=== PATIENT | male | born 1965 | race Caucasian/White ===

== ENCOUNTER 2024-02-11 13:39 | Inpatient (IN) | payer OTHER ==
--- NOTE | 2024-02-11 13:52 | ED ---
Chest Pain HPI - General Source: patient, RN notes reviewed Mode of arrival: ambulatory Limitations: no limitations - History of Present Illness MD Complaint: chest pain <Carlotta Plunkett - Last Filed: 02/11/24 13:46> <Jayla Scott - Last Filed: 02/11/24 17:11> - General Chief Complaint: Chest Pain Stated Complaint: Chest Pain Time Seen by Provider: 02/11/24 13:46 - History of Present Illness Initial Comments: Quick Note: This is a 58 year old male who presents to the emergency department for chest pain. States that it has been present over the last few weeks but seems to be getting worse. Pain is much worse with exertion. Reports associated shortness of breath. States that walking any distance is very difficult. Denies any history of cardiac issues. (Carlotta Plunkett) 58-year-old male presenting to the ER with chest pain. States he has been having this chest pain for the past several weeks but it has been worsening. He describes the pain as pressure in his chest that radiates into his right shoulder and neck. He also endorses nausea when he is having the chest pain. He states the pain is worse with exertion and is accompanied by some shortness of breath as well. He reports an episode 3 days ago where he was walking back to his [facility] after fishing and reports the chest pain was more severe than it ever had been which alarmed him. He denies any current pain while lying on the stretcher. States he has no known health conditions however states he has not been to the doctor in a long time. He is a previous tobacco smoker. (Jayla Scott) - Related Data Home Medications Medication Instructions Recorded Confirmed No Known Home Medications 02/11/24 02/11/24 Allergies Allergy/AdvReac Type Severity Reaction Status Date / Time No Known Allergies Allergy Verified 02/11/24 16:17 Review of Systems ROS Other: All systems not noted in ROS Statement are negative. <Carlotta Plunkett - Last Filed: 02/11/24 13:46> ROS Other: All systems not noted in ROS Statement are negative. <Jayla Scott - Last Filed: 02/11/24 17:11> ROS Statement: Those systems with pertinent positive or pertinent negative responses have been documented in the HPI. EKG Findings - EKG Results: EKG: interpreted by ERMD (EKG reveals normal sinus rhythm with occasional PACs. No acute ST changes present. Ventricular rate 89 bpm, KS interval 178, QRS duration 90, QT/QTc 338/385.) <Jayla Scott - Last Filed: 02/11/24 17:11> General Exam <Carlotta Plunkett - Last Filed: 02/11/24 13:46> General appearance: alert, in no apparent distress Head exam: Present: atraumatic, normocephalic, normal inspection Eye exam: Present: normal appearance, PERRL, EOMI. Absent: scleral icterus, conjunctival injection, periorbital swelling ENT exam: Present: normal exam, mucous membranes moist Neck exam: Present: normal inspection. Absent: tenderness, meningismus, lymphadenopathy Respiratory exam: Present: normal lung sounds bilaterally. Absent: respiratory distress, wheezes, rales, rhonchi, stridor Cardiovascular Exam: Present: regular rate, normal rhythm, normal heart sounds. Absent: systolic murmur, diastolic murmur, rubs, gallop, clicks GI/Abdominal exam: Present: soft, normal bowel sounds. Absent: distended, tenderness, guarding, rebound, rigid Neurological exam: Present: alert, oriented X3, CN II-XII intact Psychiatric exam: Present: normal affect, normal mood Skin exam: Present: warm, dry, intact, normal color. Absent: rash <Jayla Scott - Last Filed: 02/11/24 17:11> - General Exam Comments Initial Comments: Visual Physical Exam Vital signs reviewed General: Well-appearing, nontoxic, no acute distress. Head: Normocephalic, atraumatic Eyes: PERRLA, EOMI ENT: Airway patent Chest: Nonlabored breathing Skin: No visual rash, normal skin tone Neuro: Alert and oriented 3 Musculoskeletal: No gross abnormalities (Carlotta Plunkett) Course Vital Signs 02/11/24 02/11/24 13:50 15:20 Temperature 98.0 F Pulse Rate 98 82 Respiratory 20 18 Rate Blood Pressure 144/102 162/96 O2 Sat by Pulse 97 100 Oximetry Chest Pain [facility] <Carlotta Plunkett - Last Filed: 02/11/24 13:46> <Jayla Scott - Last Filed: 02/11/24 17:11> - MDM I performed the QuickNote portion of this chart. Signed Carlotta Plunkett PA-C. (Carlotta Plunkett) Was pt. sent in by a medical professional or institution (SHAUNA Combs, BOAT JOINER HELPER, urgent care, hospital, or alf...) When possible be specific @ -No Did you speak to anyone other than the patient for history (EMS, parent, family, police, friend...)? What history was obtained from this source @ -No Did you review nursing and triage notes (agree or disagree)? Why? @ -I reviewed and agree with nursing and triage notes Were old charts reviewed (outside hosp., previous admission, EMS record, old EKG, old radiological studies, urgent care reports/EKG's, alf records)? Report findings @ -No old charts were reviewed Differential Diagnosis (chest pain, altered mental status, abdominal pain women, abdominal pain men, vaginal bleeding, weakness, fever, dyspnea, syncope, headache, dizziness, GI bleed, back pain, seizure, CVA, palpatations, mental health, musculoskeletal)? @ -Differential Chest Pain: Stable Angina, Unstable Angina, STEMI, NSTEMI Aortic Dissection, Pneumothorax, Musculoskeletal, Esophageal Spasm GERD, Cholecystitis, Pancreatitis, Zoster, this is not meant to be an all-inclusive list. EKG interpreted by me (3pts min.). @ -As above X-rays interpreted by me (1pt min.). @ -Chest x-ray negative for acute process CT interpreted by me (1pt min.). @ -None done U/S interpreted by me (1pt. min.). @ -None done What testing was considered but not performed or refused? (CT, X-rays, U/S, labs)? Why? @ -None What meds were considered but not given or refused? Why? @ -None Did you discuss the management of the patient with other professionals (professionals i.e. SHAUNA Combs, BOAT JOINER HELPER, lab, RT, psych nurse, perinatal social worker, java mobile developer, teacher, correction officer city or county jail, supportive employment case manager)? Give summary @ -Case discussed with Minoo from [facility] who accepts admission at this time with consult to cardiology services for chest pain rule out acute coronary syndrome Was smoking cessation discussed for >3mins.? @ -No Was critical care preformed (if so, how long)? @ -No Were there social determinants of health that impacted care today? How? (Homelessness, low income, unemployed, alcoholism, drug addiction, transportation, low edu. Level, literacy, decrease access to med. care, [place] [facility], rehab)? @ -No Was there de-escalation of care discussed even if they declined (Discuss DNR or withdrawal of care, Hospice)? DNR status @ -No What co-morbidities impacted this encounter? (DM, HTN, Smoking, COPD, CAD, Cancer, CVA, ARF, Chemo, Hep., AIDS, mental health diagnosis, sleep apnea, morbid obesity)? @ -None Was patient admitted / discharged? Hospital course, mention meds given and route, prescriptions, significant lab abnormalities, going to OR and other pertinent info. @ -Patient was admitted. Patient was seen and evaluated for chest pain worsening over the course of several weeks. Chest pain is exertional and radiates to right neck and shoulder with nausea and shortness of breath. Vitals and physical examination are unremarkable. Patient is not currently having any chest pain. Pain is consistent with nature of cardiac pain. EKG is unremarkable, chest x-ray is unremarkable. Troponin is 0.023. Patient is given aspirin. Case discussed with Minoo from [facility] who accepts admission at this time with consult to cardiology services for chest pain rule out acute coronary syndrome. Case discussed with Dr. Dinh Undiagnosed new problem with uncertain prognosis? @ -No Drug Therapy requiring intensive monitoring for toxicity (Heparin, Nitro, Insulin, Cardizem)? @ -No Were any procedures done? @ -No Diagnosis/symptom? @ -Chest pain rule out ACS Acute, or Chronic, or Acute on Chronic? @ -Acute Uncomplicated (without systemic symptoms) or Complicated (systemic symptoms)? @ -Uncomplicated Side effects of treatment? @ -No Exacerbation, Progression, or Severe Exacerbation? @ -No Poses a threat to life or bodily function? How? (Chest pain, [place], [place], pneumonia, PE, COPD, DKA, ARF, appy, cholecystitis, CVA, Diverticulitis, Homicidal, Suicidal, threat to staff... and all critical care pts) @ -Yes, chest pain (Jayla Scott) Disposition <Carlotta Plunkett - Last Filed: 02/11/24 13:46> <Jayla Scott - Last Filed: 02/11/24 17:11> Clinical Impression: Chest pain Disposition: ADMITTED IP TO THIS HOSP Condition: Stable Referrals: None,Stated [Primary Care Provider] - 1-2 days
[2024-02-11 14:39] LABS: Basophils # (A) 0.1 k/uL (0-0.2); Basophils % (A) 1 %; Eosinophils # (A) 0.5 k/uL (0-0.7); Eosinophils % (A) 5 %; HCT 49.4 % (39.0-53.0); HGB 16.1 gm/dL (13.0-17.5); Lymphocytes # (A) 2.9 k/uL (1.0-4.8); Lymphocytes % (A) 30 %; MCH 31.3 pg (25.0-35.0); MCHC 32.6 g/dL (31.0-37.0); MCV 96.2 fL (80.0-100.0); Monocytes # (A) 0.5 k/uL (0-1.0); Monocytes % (A) 5 %; Neutrophils # (A) 5.5 k/uL (1.3-7.7); Neutrophils % (A) 57 %; Platelet Count 292 k/uL (150-450); RBC 5.13 m/uL (4.30-5.90); RDW 12.5 % (11.5-15.5); WBC 9.7 k/uL (3.8-10.6)
[2024-02-11 14:44] LABS: ALT 16 U/L (4-49); AST 26 U/L (17-59); African American GFR (CKD) 78 (>60 ml/min/1.73 sqM); Albumin 4.2 g/dL (3.5-5.0); Alkaline Phosphatase 78 U/L (38-126); Anion Gap 6 mmol/L; Blood Urea Nitrogen 13 mg/dL (9-20); Carbon Dioxide 23 mmol/L (22-30); Chloride 110 mmol/L (98-107); Glucose 103 mg/dL (74-99); Magnesium 2.1 mg/dL (1.6-2.3); Non-African American GFR(CKD) 67 (>60 ml/min/1.73 sqM); Potassium 4.6 mmol/L (3.5-5.1); Sodium 139 mmol/L (137-145); Total Bilirubin 0.8 mg/dL (0.2-1.3)
[2024-02-11 14:49] LABS: INR 0.9 (<1.2); Partial Thromboplastin Time 25.4 sec (22.0-30.0); Prothrombin Time 10.5 sec (10.0-12.5)
[2024-02-11 14:53] LABS: NT-Pro-B-Type Natriuretic Pept 215 pg/mL
--- NOTE | 2024-02-11 15:51 | XR ---
EXAMINATION TYPE: XR chest 2V DATE OF EXAM: 02/11/2024 3:09 PM CLINICAL INDICATION:Male, 58 years old with history of Chest Pain; COMPARISON: Chest radiographs from 02/11/2024 TECHNIQUE: XR chest 2V Frontal and lateral views of the c hest. FINDINGS: Lungs/Pleura: There is no evidence of pleural effusion, focal consolidation, or pneumothorax. Pulmonary vascularity: Unremarkable. Heart/mediastinum: Cardiomediastinal silhouette is unremarkable. Musculoskeletal: No acute osseous pathology. IMPRESSION: No acute cardiopulmonary disease/process.
[2024-02-11] MEDS ORDERED: NALOXONE 0.4 MG/ML 1 ML VIAL IV PRN (17:01)
[2024-02-11] MEDS: ASPIRIN 81 MG PO STA (18:24)
[2024-02-12] MEDS ORDERED: CAFFEINE CITRATE 60 MG/3 ML VIAL IV PRN (07:22)
[2024-02-12] MEDS ORDERED: REGADENOSON 0.4 MG/5 ML SYRINGE IV PRN (07:22)
[2024-02-12] MEDS ORDERED: AMINOPHYLLINE 500 MG/20 ML VIAL IV PRN (07:22)
--- NOTE | 2024-02-12 09:05 | CONS ---
CONSULTATION CHIEF COMPLAINT: Chest pain. 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 Subsequently continued to work. Most recently he went up [place] and after he finished his fishing as he was walking back up, he developed chest tightness, describes it as a pressure-like sensation in the precordial area, moderate intensity and found it very difficult to get back to his car. He returned home and subsequently came to the emergency room. There he is admitted to hospital. At the time of my evaluation this morning, he is pain-free and hemodynamically stable. Blood pressure is elevated. The patient states that he is adopted and does not have any history. Denies smoking. There is no prior history of diabetes, hypertension, dyslipidemia. On this admission, his blood pressure is elevated. I talked to him at length about his treatment options including a stress Cardiolite study to evaluate for ischemia versus cardiac catheterization. Understanding risks and benefits, he wishes to have a stress test on and if this is abnormal, will proceed with a catheterization. PAST MEDICAL HISTORY: Unremarkable. MEDICATIONS: None. ALLERGIES: None. FAMILY HISTORY: The patient is adopted. SOCIAL HISTORY: Negative for smoking or ETOH abuse. The patient uses marijuana. REVIEW OF SYSTEMS: A review of systems has been performed, pertinences are as documented. PHYSICAL EXAMINATION: GENERAL: Comfortable at rest. VITAL SIGNS: Blood pressure is elevated. NECK: There is no jugular venous distention. Carotid upstroke is normal. There is no bruit. CHEST: Reveals good air entry bilaterally. HEART: Reveals first and second heart sounds. No gallop, no murmur, no rub. ABDOMEN: Soft, nontender. EXTREMITIES: Did not reveal any edema. Peripheral pulses are felt. ASSESSMENT AND PLAN: 1. Precordial chest pain. 2. Hypertension. PLAN: 1. I am going to start the patient on amlodipine for blood pressure control. 2. I will obtain a 2D echo to evaluate wall motion and LV function. 3. I will schedule him for a stress Cardiolite study. If this is abnormal, we will proceed with cardiac catheterization. MMODL / IJN: [id number] /
[2024-02-12] MEDS: amLODIPine 10 MG TAB PO SCH (11:53)
[2024-02-12] MEDS: ALPRAZolam 0.5 MG TAB PO STA (12:20)
--- NOTE | 2024-02-12 12:26 | P.HPIM ---
History of Present Illness Patient is a 50-year-old male came with complaints of chest pain has been going on for several weeks tightness on and off exertional nonradiating burning and a sensation severe in the precordially area no associate shortness of breath lightheadedness patient states he is anxious and patient still says he still has chest pain which is severe. Patient had an EKG which did not show any acute ST- T wave changes troponins are negative patient underwent stress test. Awaiting the results. Patient chest x-ray did not show any pneumonia. Patient had any previous history of hypertension diabetes mellitus or dyslipidemia. Patient although patient blood pressure is consistently elevated during this hospitalization. Patient had a D-dimer which is negative for pulmonary embolism. Patient denies any alcohol use patient chest pain is noncardiac not associated with food REVIEW OF SYSTEMS: CONSTITUTIONAL: No fever, no malaise, no fatigue. HEENT: No recent visual problems or hearing problems. Denied any sore throat. CARDIOVASCULAR: No orthopnea, PND, no palpitations, no syncope. PULMONARY: No shortness of breath, no cough, no hemoptysis. GASTROINTESTINAL: No diarrhea, no nausea, no vomiting, no abdominal pain. NEUROLOGICAL: No headaches, no weakness, no numbness. HEMATOLOGICAL: Denies any bleeding or petechiae. GENITOURINARY: Denies any burning micturition, frequency, or urgency. MUSCULOSKELETAL/RHEUMATOLOGICAL: Denies any joint pain, swelling, or any muscle pain. ENDOCRINE: Denies any polyuria or polydipsia. The rest of the 14-point review of systems is negative. PHYSICAL EXAMINATION: GENERAL: The patient is alert and oriented x3, not in any acute distress. Well developed, well nourished. HEENT: Pupils are round and equally reacting to light. EOMI. No scleral icterus. No conjunctival pallor. Normocephalic, atraumatic. No pharyngeal erythema. No thyromegaly. CARDIOVASCULAR: S1 and S2 present. No murmurs, rubs, or gallops. PULMONARY: Chest is clear to auscultation, no wheezing or crackles. ABDOMEN: Soft, nontender, nondistended, normoactive bowel sounds. No palpable organomegaly. MUSCULOSKELETAL: No joint swelling or deformity. EXTREMITIES: No cyanosis, clubbing, or pedal edema. NEUROLOGICAL: Gross neurological examination did not reveal any focal deficits. SKIN: No rashes. Assessment and plan -Chest pain rule out acute coronary syndromes awaiting stress test if its positive patient will need cardiac catheterization otherwise patient will be discharged to follow-up with PCP ruled out pulmonary embolism and pneumonia with a D-dimer and a chest x-ray. Patient does not have any leukocytosis. -Elevated consistently elevated blood pressure patient probably has essential hypertension patient was started on 10 mg of amlodipine. Patient will discharge on 5 mg of amlodipine and follow-up with cardiology and PCP as an outpatient -Possible gastroesophageal reflux disease trial of proton pump any better for 14 days. Although patient denies any alcohol use the patient does have alcohol breath and alcohol cessation counseling was provided -Marijuana use counseling was provided Patient will be discharged today if stress test is negative to follow-up with PCP Past Medical History Past Medical History: No Reported History History of Any Multi-Drug Resistant Organisms: None Reported Additional Past Surgical History / Comment(s): gastric surgery Past Psychological History: No Psychological Hx Reported Smoking Status: Former smoker Past Alcohol Use History: Occasional Past Drug Use History: Marijuana Medications and Allergies Home Medications Medication Instructions Recorded Confirmed Type Pantoprazole Sodium [Protonix] 40 mg PO AC-BRKFST #14 tab 02/12/24 Rx amLODIPine [Norvasc] 5 mg PO DAILY #30 tab 02/12/24 Rx Allergies Allergy/AdvReac Type Severity Reaction Status Date / Time No Known Allergies Allergy Verified 02/11/24 16:17 Physical Exam Vitals: Vital Signs Temp Pulse Resp BP Pulse Ox 02/12/24 11:54 95 14 156/100 99 02/12/24 05:55 92 18 158/100 97 02/12/24 01:00 80 18 148/99 97 02/11/24 23:00 79 18 162/95 94 L 02/11/24 20:00 79 18 148/74 96 02/11/24 18:36 87 18 157/121 98 02/11/24 15:20 82 18 162/96 100 02/11/24 13:50 98.0 F 98 20 144/102 97 Results CBC & Chem 7: 02/11/24 14:19 02/11/24 14:19 Labs: Abnormal Lab Results - Last 24 Hours (Table) 02/11/24 Range/Units 14:19 Chloride 110 H (98-107) mmol/L Glucose 103 H (74-99) mg/dL
[2024-02-12] MEDS ORDERED: ALPRAZolam 0.25 MG TAB PO PRN (12:47)
[2024-02-12] MEDS ORDERED: NITROGLYCERIN SL TABS 0.4 MG TAB SUBLINGUAL PRN (12:47)
--- NOTE | 2024-02-12 12:51 | P.PN ---
Progress Note - Text Patient underwent Lexiscan stress test this morning. During Lexiscan, patient had significant ST depression with midsternal chest pain 8/10. Patient also appeared ashen in color and was diaphoretic. He complained of feeling lightheaded and nauseated. Patient's blood pressure was in the 150s. Heart rate 80s90s. Patient was given sublingual nitro with relief of his chest pain. Patient states this pain felt very similar to the exertional chest pain he has been having over the past couple weeks. Patient will be started on IV heparin and will be scheduled for cardiac catheterization tomorrow with Dr. Mahoney. N.p.o. at midnight. Attempted to call patients nurse twice to update RN on plan of care with no answer.
[2024-02-12] MEDS ORDERED: ONDANSETRON 4 MG/2 ML VIAL IM STA (13:03)
--- NOTE | 2024-02-12 13:15 | NM ---
EXAMINATION TYPE: NM stress lexiscan cardiolite DATE OF EXAM: 02/12/2024 COMPARISON: NONE CLINICAL INDICATION: Male, 58 years old with history of chest pain; TECHNIQUE: After the intravenous administration of 10.32 mCi Tc 99m Sestamibi - Cardiolite resting S PECT images acquired 45 minutes post injection. The patient received 0.4mg Lexiscan, 24.7 mCi Tc 99m Sestamibi - Stress images obtained [address] injection FINDINGS: Review of stress and rest SPECT images demonstrates large area of anterior wall reversibility and add itional moderate sized area of mixed apical inferior wall reversibility. Gated analysis shows mild global hypokinesis with an estimated left ventricular ejection fraction of 49 %. TID is abnormally increased at 1.34. IMPRESSION: 1. Large area of anterior wall reversible ischemia and additional moderate sized area of reversibilit y mid to apical inferior wall. Further evaluation recommended. 2. In addition, the transient ischemic dilatation ratio is abnormally increased. This can be seen in the setting of multivessel, global inducible ischemia. 3. Estimated LVEF mildly diminished at 49%.
[2024-02-12] MEDS: HEPARIN SODIUM 1,000 UN/ML (10ML VL) IV ONE (13:29)
[2024-02-12] MEDS: ONDANSETRON 4 MG/2 ML VIAL IVP PRN (13:29)
[2024-02-12] MEDS: HEPARIN SOD,PORK IN 0.45% NACL 25,000 UNIT in 0.45% NACL 1 250ML.BAG IV SCH (13:30)
[2024-02-12] MEDS: PANTOPRAZOLE 40 MG/10 ML VIAL IVP SCH (13:39)
[2024-02-12 16:11] LABS: Chol/HDL Ratio 5.18 Ratio; LDL Cholesterol,Calculated 156.9 mg/dL (0.0-131.0); VLDL Calculation 17.36 mg/dL (5.00-40.00)
[2024-02-12 16:13] LABS: Basophils % (A) 0 %; Eosinophils % (A) 0 %; HCT 50.6 % (39.0-53.0); HGB 16.4 gm/dL (13.0-17.5); Lymphocytes # (A) 1.2 k/uL (1.0-4.8); Lymphocytes % (A) 10 %; MCH 30.9 pg (25.0-35.0); MCHC 32.4 g/dL (31.0-37.0); MCV 95.3 fL (80.0-100.0); Mean Platelet Volume 7.3; Monocytes # (A) 0.3 k/uL (0-1.0); Monocytes % (A) 3 %; Neutrophils # (A) 10.1 k/uL (1.3-7.7); Neutrophils % (A) 87 %; Platelet Count 325 k/uL (150-450); RBC 5.31 m/uL (4.30-5.90); RDW 12.5 % (11.5-15.5); WBC 11.7 k/uL (3.8-10.6)
[2024-02-12 16:28] LABS: INR 1.1 (<1.2); Prothrombin Time 11.5 sec (10.0-12.5)
--- NOTE | 2024-02-12 17:43 | CA ---
Transthoracic Echo Report Name: Matias Early Age: 58 Gender: M : 1965 Exam Date: 02/12/2024 13:53 Exam Location: [facility] Ht (in): 71 Wt (lb): 230 Ordering Physician: Abner Mahoney MD ([id number]) Attending/Referring Phys: Denzel VERA Peer Health Promoter Jodi Vasquez RDCS Procedure CPT: Indications: Chest Pain Cardiac Hx: Technical Quality: Very technically difficult study Contrast 1: Definity Total Dose (mL): 2 Contrast 2: Total Dose (mL): MEASUREMENTS (Male / Female) Normal Values 2D ECHO LVOT Diameter 2.1 cm LV Diastolic Volume MOD BP 112.0 cm??? 67 - 155 / 56 - 104 cm??? LV Systolic Volume MOD BP 32.1 cm??? 22 - 58 / 19 - 49 cm??? LV Ejection Fraction MOD BP 71.4 % >= 55 % LV Cardiac Index MOD BP 3002.2 cm???/min???m??? LV Diastolic Volume MOD 4C 116.2 cm??? LV Systolic Volume MOD 4C 35.0 cm??? LV Ejection Fraction MOD 4C 69.9 % LV Cardiac Index MOD 4C 3050.9 cm???/min???m??? LV Diastolic Length 4C 9.3 cm LV Systolic Length 4C 8.1 cm LV Diastolic Volume MOD 2C 105.3 cm??? LV Systolic Volume MOD 2C 26.6 cm??? LV Ejection Fraction MOD 2C 74.7 % LV Cardiac Index MOD 2C 2956.0 cm???/min???m??? LV Diastolic Length 2C 9.1 cm LV Systolic Length 2C 7.3 cm Ascending Aorta Diameter 3.6 cm DOPPLER AV Peak Velocity 214.9 cm/s AV Peak Gradient 18.5 mmHg AV Mean Velocity 155.5 cm/s AV Mean Gradient 11.0 mmHg AV Velocity Time Integral 43.0 cm LVOT Peak Velocity 126.2 cm/s LVOT Peak Gradient 6.4 mmHg LVOT Velocity Time Integral 26.5 cm LVOT Stroke Volume 88.1 cm??? LVOT Stroke Volume Index 39.4 ml/m??? LVOT Cardiac Index 3309.3 cm???/min???m??? AV Area Cont Eq vti 2.0 cm??? AV Area Cont Eq pk 1.9 cm??? MV Area PHT 3.8 cm??? Mitral E Point Velocity 73.1 cm/s Mitral A Point Velocity 106.3 cm/s Mitral E to A Ratio 0.7 MV Deceleration Time 202.1 ms FINDINGS Left Ventricle Left ventricular ejection fraction is estimated at 60-65 %. Left ventricular cavity size normal. Left ventricular wall thickness normal. No obvious regional wall motion abnormalities. Right Ventricle Right ventricle not well visualized. Unable to estimate the right ventricular systolic pressure. Right Atrium Right atrium not well visualized. Left Atrium Left atrium not well visualized. Mitral Valve Mitral valve not well visualized. No mitral stenosis, regurgitation or prolapse. Aortic Valve Aortic valve not well visualized. Aortic stenosis but unable to accurately assess the degree due to inadequate imaging windows. No aortic regurgitation. Tricuspid Valve Tricuspid valve not well visualized. No tricuspid stenosis, regurgitation or prolapse. Pulmonic Valve Pulmonic valve not well visualized. Pericardium No pericardial effusion. Aorta Normal size aortic root and proximal ascending aorta. CONCLUSIONS Normal LV function Previewed by: Dr. Abner Mahoney MD (Electronically Signed) Final Date: 12 February 2024 17:42
--- NOTE | 2024-02-12 18:00 | CA ---
Lexiscan Nuclear Stress Test Report Name: Matias Early Exam Date: 02/12/2024 10:32 Exam Location: [facility] Ht (in): 71 Wt (lb): 230 BSA: 2.24 Ordering Phys: Abner Mahoney MD Referring Phys: HAJA Technologist: Tip Terry Age: 58 Gender: M : 1965 Procedure CPT: Indications: Reflex order-Stress test ICD-10 Codes: Patient History: Medications: SEE CHART Meds past 24 hrs: Pretest Chest Pain: STRESS TEST Lexiscan Protocol Exercise Duration (min:sec): 01:[address] Depressions (mm): Angina Score: Suárez Score: Resting HR (bpm): 101 Peak HR (bpm): 142 Resting BP (mmHg): 130 / 100 Peak BP (mmHg): 169 / 76 MPHR: 162 Target HR: 138 % MPHR: 88 METS: 1.0 Total Dose: Peak Dose: Atropine: Double Product: 57482 BP Response: Stress Termination: Stress Symptoms: CHEST PRESSURE,NAUSEA,HEADACHE Stress Summary: ECG ANALYSIS Resting ECG: Normal sinus rhythm normal axis normal intervals Stress ECG: Developed [address] segment depression with Lexiscan infusion had chest pressure and nausea CONCLUSIONS Abnormal stress test by EKG criteria Cardiolite portion of the stress test will be reported separately Dr. Abner Mahoney MD (Electronically Signed) Final Date: 12 February 2024 17:59
[2024-02-12 19:53] LABS: Glucose,Whole Blood 117 mg/dL (70-110)
[2024-02-12] MEDS: ALPRAZolam 0.5 MG TAB PO PRN (22:16)
[2024-02-13] MEDS: SODIUM CHLORIDE 0.9% 1,000 ML in EMPTY BAG 1 BAG IV SCH ×2 (01:52→12:45)
[2024-02-13] MEDS: ASPIRIN 325 MG TAB PO ONE (05:49)
[2024-02-13] MEDS: HEPARIN SODIUM 1,000 UN/ML (10ML VL) IV PRN (05:49)
[2024-02-13] MEDS: ATORVASTATIN 80 MG TAB PO ONE (05:49)
[2024-02-13 06:35] LABS: Glucose,Whole Blood 121 mg/dL (70-110)
[2024-02-13] MEDS ORDERED: HEPARIN SODIUM,PORCINE (1 ML) 2,500 UNIT in SODIUM CHLORIDE 0.9% 250 ML IRRIGATION PRN (07:00)
[2024-02-13] MEDS ORDERED: HEPARIN SODIUM,PORCINE 10,000 UNIT in SODIUM CHLORIDE 0.9% 1,000 ML IRRIGATION PRN (07:00)
[2024-02-13 08:41] LABS: Basophils # (A) 0.07 X 10*3/uL (0.00-0.10); Basophils % (A) 0.5 %; Eosinophils # (A) 0.06 X 10*3/uL (0.04-0.35); Eosinophils % (A) 0.4 %; HCT 51.3 % (39.6-50.0); HGB 17.1 g/dL (13.0-17.0); Lymphocytes # (A) 3.44 X 10*3/uL (0.90-5.00); Lymphocytes % (A) 25.7 %; MCH 30.7 pg (27.0-32.0); MCHC 33.3 g/dL (32.0-37.0); MCV 92.1 FL (80.0-97.0); Monocytes # (A) 0.74 X 10*3/uL (0.20-1.00); Monocytes % (A) 5.5 %; NRBC Per 100 WBC 0 X 10*3/uL (0.00-0.01); Neutrophils # (A) 9.03 X 10*3/uL (1.80-7.70); Neutrophils % (A) 67.5 %; Platelet Count 346 X 10*3/uL (140-440); RBC 5.57 X 10*6/uL (4.40-5.60); WBC 13.39 X 10*3/uL (4.50-10.00)
[2024-02-13 09:31] LABS: INR 1.05 sec (0.93-1.11); Prothrombin Time 11.3 sec (9.9-11.9)
[2024-02-13] MEDS: MIDAZOLAM 2 MG/2 ML VIAL IVP ONE ×4 (10:26→12:08)
[2024-02-13] MEDS: fentaNYL (PF) 50 MCG/ML 2 ML AMP IVP ONE ×3 (10:26→11:41)
[2024-02-13] MEDS: LIDOCAINE 1% INJ 10MG/ML (20 ML MDV) SQ ONE (10:28)
[2024-02-13] MEDS: VERAPAMIL SYRINGE (5 MG/10 ML) INTRAARTER ONE (10:29)
[2024-02-13] MEDS: HEPARIN SODIUM 1,000 UN/ML (10ML VL) IVP ONE ×2 (10:33→12:32)
--- NOTE | 2024-02-13 11:18 | CC ---
CARDIAC CATHETERIZATION REPORT INDICATION: Unstable angina. PROCEDURE NOTE: After obtaining informed consent, left heart catheterization and coronary angiogram were performed via the right radial artery using standard Ventura catheters. The patient tolerated the procedure well without any obvious immediate complications. The patient received moderate conscious sedation. Total sedation time was 15 minutes. The patient was given verapamil and heparin per protocol. Right radial artery access was obtained using Seldinger technique. A 6-Swedish sheath was placed. Catheters and wires were floated into the ascending aorta under fluoroscopic guidance. FINDINGS: 1. HEMODYNAMICS: Left ventricular end-diastolic pressure is 12 to 14 mm. There is no significant gradient across the aortic valve. 2. LEFT VENTRICULOGRAM: Left ventriculogram is not performed. 3. ANGIOGRAPHIC DATA: a.Left main coronary artery: Left main coronary artery appears calcified, but is free of significant stenosis. Divides into left anterior descending coronary artery and circumflex coronary artery. b.LAD shows a focal 90% stenosis in the proximal portions. Circumflex coronary artery has a 70% stenosis involving the distal portion. c.Right coronary artery is a large dominant vessel that shows mild nonobstructive disease. CONCLUSION: Severe two-vessel coronary artery disease as described above with a focal 95% stenosis involving proximal LAD. There are collaterals from the right to the distal LAD. PLAN: Dr. Lyn, the on-call software security architect will review the angiographic data and advise on revascularization of the LAD and circ. MMJANETL / LARAN: [id number] /
[2024-02-13] MEDS: TICAGRELOR 90 MG TAB PO ONE (11:43)
[2024-02-13] MEDS: HYDROmorphone 0.5 MG/0.5 ML SYRINGE IVP ONE (12:02)
[2024-02-13] MEDS: IOPAMIDOL-370 100ML BTL INJ ONE ×2 (12:03→12:28)
[2024-02-13] MEDS: SODIUM CHLORIDE 0.9% 1,000 ML IV ONE (12:29)
[2024-02-13] MEDS ORDERED: ZOLPIDEM 5 MG TAB PO PRN (12:32)
[2024-02-13] MEDS ORDERED: ATROPINE SULFATE 0.1 MG/ML 10ML SYRINGE IV PRN (12:32)
[2024-02-13] MEDS ORDERED: NITROGLYCERIN SL TABS 0.4 MG TAB SUBLINGUAL PRN (12:32)
[2024-02-13] MEDS ORDERED: MAG HYDROX/AL HYDROX/SIMETH 30 ML CUP PO PRN (12:32)
[2024-02-13] MEDS ORDERED: RX INFO: IV CONTRAST WAS GIVEN 1 EACH MISC MISCELLANE PRN (12:32)
--- NOTE | 2024-02-13 12:36 | P.PCN ---
Date of Procedure: 02/13/24 Operative Findings: PERCUTANEOUS CORONARY INTERVENTION Performing physician Yonatan Lyn M.D. Procedure Performed: 1. Successful stenting of the mid LAD using 3.5 x 23 Xience drug-eluting stent with an excellent angiographic results. 2. Successful stending of the proximal LAD using 4.5 x 18 Xience drug-eluting stent with an excellent angiographic result. 3. Adjunctive use of intravascular imaging Indication: Symptomatic 58-year-old gentleman who underwent myocardial perfusion imaging stress test came in to be abnormal and subsequently underwent a heart catheterization by Dr. Mahoney and that revealed severe two-vessel CAD involving the LAD and LCx Approach: Right radial artery Complications: None Level of Sedation: Moderate with a sedation length of 43 minutes Procedure Discussion: Please refer to diagnostic heart catheterization was performed earlier today. Anticoagulation was initiated using heparin with continuous ACT monitoring. Subsequently I did engage the left main using CLS 3 guiding catheter. I did wired the LAD using a whisper wire. Subsequently intravascular ultrasound was performed and showed a diameter of the LAD distally about 3.5 mm and proximally about 4 mm. There was no heavily calcified lesions noted. Predilatation was performed using 3.5 mm balloon before I deployed 3.5 x 23 mm stent. Subsequently the stent was postdilated using 4 mm balloon. An angiogram after that showed what it seems to be dissection involving the proximal LAD likely to be iatrogenic and related to the guiding catheter. I did subsequently and quickly deployed 4.5 x 18 mm stent with about 2 mm overlap between the previous stent and second stents. Final angiogram was performed excellent angiographic results and the procedure was completed with no complication Postprocedure Management: 1. PCI of the LCx 2. Dual antiplatelet therapy using aspirin and Brilinta for at least 6-month 3. Follow-up with the patient
[2024-02-13 14:35] VITALS: BMI 32.1
[2024-02-13 20:13] VITALS: RESP 15
[2024-02-13] MEDS: TICAGRELOR 90 MG TAB PO SCH (20:48)
[2024-02-13] MEDS: ATORVASTATIN 80 MG TAB PO SCH (20:48)
--- NOTE | 2024-02-13 20:59 | P.PN ---
Subjective Progress Note Date: 02/13/24 Patient is a 50-year-old male came with complaints of chest pain has been going on for several weeks tightness on and off exertional nonradiating burning and a sensation severe in the precordially area no associate shortness of breath lightheadedness patient states he is anxious and patient still says he still has chest pain which is severe. Patient had an EKG which did not show any acute ST- T wave changes troponins are negative patient underwent stress test. Awaiting the results. Patient chest x-ray did not show any pneumonia. Patient had any previous history of hypertension diabetes mellitus or dyslipidemia. Patient although patient blood pressure is consistently elevated during this hospit alization. Patient had a D-dimer which is negative for pulmonary embolism. Patient denies any alcohol use patient chest pain is noncardiac not associated with food 02/13/2024 Patient is evaluated today in follow up. He is sitting up in bed. Had chest pain during the stress test was found to be positive patient had large area of anterior wall reversible ischemia and additional moderate sized area of reversibility mid to apical inferior wall. The LV function is at 49%. Patient was started on IV heparin and kept overnight. He underwent cardiac cathterization and had stent to the left circ and the LAD. He has been started on dual antiplatelet therapy. Review of Systems Constitutional: Denied any fatigue denied any fever. Cardio vascular: denied any chest pain, palpitations Gastrointestinal: denied any nausea, vomiting, diarrhea Pulmonary: Denied any shortness of breath cough Neurologic denied any new focal deficits All inpatient medications were reviewed and appropriate changes in these medications as dictated in the interval history and assessment and plan. PHYSICAL EXAMINATION: GENERAL: The patient is alert and oriented x3, not in any acute distress. Well developed, well nourished. HEENT: Pupils are round and equally reacting to light. EOMI. No scleral icterus. No conjunctival pallor. Normocephalic, atraumatic. No pharyngeal erythema. No thyromegaly. CARDIOVASCULAR: S1 and S2 present. No murmurs, rubs, or gallops. PULMONARY: Chest is clear to auscultation, no wheezing or crackles. ABDOMEN: Soft, nontender, nondistended, normoactive bowel sounds. No palpable organomegaly. MUSCULOSKELETAL: No joint swelling or deformity. EXTREMITIES: No cyanosis, clubbing, or pedal edema. NEUROLOGICAL: Gross neurological examination did not reveal any focal deficits. SKIN: No rashes. Assessment and plan -Chest pain due to severe two vessel coronary artery disease patient underwent stenting of the LAD and the left circ today. He is on dual antiplatelet therapy. Continue cardiac telemetry monitoring overnight. -Elevated consistently elevated blood pressure patient probably has essential hypertension patient was started on 10 mg of amlodipine. -Possible gastroesophageal reflux disease trial of proton pump any better for 14 days. Although patient denies any alcohol use the patient does have alcohol breath and alcohol cessation counseling was provided -Marijuana use counseling was provided GI prophylaxis DVT prophylaxis Full Code The impression and plan of care has been dictated by Caren Larson Nurse Practitioner as directed. Dr. Delonte MD I have performed a history and physical examination and medical decision making of this patient, discussed the same with the dictator, and agree with the dictators assessment and plan as written, documented as a scribe. Based on total visit time, I have performed more than 50% of this visit. Objective - Vital Signs Vital signs: Vital Signs Temp 98.7 F 02/13/24 19:14 Pulse 110 H 02/13/24 19:14 Resp 15 02/13/24 19:14 BP 139/92 02/13/24 19:14 Pulse Ox 94 L 02/13/24 19:14 FiO2 Intake & Output 02/13/24 02/13/24 02/14/24 06:59 18:59 06:59 Intake Total 162.5 1547.33 Output Total 650 Balance 162.5 897.33 Weight 104.326 kg 104.326 kg Intake: IV 900 Intake, IV Titration 162.5 57.33 Amount Heparin Sod,Pork in 0.45% 162.5 57.33 NaCl 25,000 unit In 0.45 % NaCl 1 250ml.bag @ 9. 585 UNITS/KG/HR 10 mls/hr IV .Q24H [facility] Rx#: [id number] Oral 590 Output: Urine 650 Other: # Voids 2 - Labs CBC & Chem 7: 02/13/24 04:04 02/11/24 14:19 Labs: Abnormal Lab Results - Last 24 Hours (Table) 02/13/24 02/13/24 Range/Units 04:04 06:25 WBC 13.39 H (4.50-10.00) X 10*3/uL Hgb 17.1 H (13.0-17.0) g/dL Hct 51.3 H (39.6-50.0) % MPV 9.0 L (9.5-12.2) FL Immature Gran # 0.05 H (0.00-0.04) X 10*3/uL Neutrophils # 9.03 H (1.80-7.70) X 10*3/uL POC Glucose (mg/dL) 121 H (70-110) mg/dL Assessment and Plan Time with Patient: Less than 30
[2024-02-14 07:45] VITALS: BP 139/87; PULSE 86; TEMP 98.5
[2024-02-14] MEDS: ASPIRIN 81 MG PO SCH (10:17)
[2024-02-14 10:32] LABS: BUN/Creat Ratio 10.82 Ratio (12.00-20.00); Blood Urea Nitrogen 11.9 mg/dL (9.0-27.0); Calcium 9.2 mg/dL (8.7-10.3); Carbon Dioxide 21.8 mmol/L (21.6-31.8); Chloride 106 mmol/L (96-109); Glucose 96 mg/dL (70-110); Potassium 4.5 mmol/L (3.5-5.5); Sodium 140 mmol/L (135-145)
[2024-02-14 10:34] LABS: Basophils # (A) 0.07 X 10*3/uL (0.00-0.10); Basophils % (A) 0.7 %; Eosinophils # (A) 0.31 X 10*3/uL (0.04-0.35); Eosinophils % (A) 3.1 %; HCT 46.4 % (39.6-50.0); HGB 15.5 g/dL (13.0-17.0); Lymphocytes # (A) 2.24 X 10*3/uL (0.90-5.00); Lymphocytes % (A) 22.6 %; MCH 31.6 pg (27.0-32.0); MCHC 33.4 g/dL (32.0-37.0); MCV 94.5 FL (80.0-97.0); Mean Platelet Volume 8.8 FL (9.5-12.2); Monocytes # (A) 0.74 X 10*3/uL (0.20-1.00); Monocytes % (A) 7.5 %; NRBC Per 100 WBC 0 X 10*3/uL (0.00-0.01); Neutrophils # (A) 6.52 X 10*3/uL (1.80-7.70); Neutrophils % (A) 65.6 %; Platelet Count 284 X 10*3/uL (140-440); RBC 4.91 X 10*6/uL (4.40-5.60); RDW 12.2 % (11.5-14.5); WBC 9.93 X 10*3/uL (4.50-10.00)
--- NOTE | 2024-02-14 10:40 | P.PN ---
Subjective HISTORY OF PRESENT ILLNESS: Patient is status post cardiac catheterization with stenting of the mid and proximal LAD. Patient examined this morning at bedside. Patient denies chest pain or pressure. He denies shortness of breath. He denies dizziness or lightheadedness. Vital signs are stable. PHYSICAL EXAM: VITAL SIGNS: Reviewed. GENERAL: Well-developed in no acute distress. NECK: Supple. No JVD or thyromegaly LUNGS: Respirations even and unlabored. Lungs essentially clear to auscultation bilaterally. HEART: Regular rate and rhythm. S1 and S2 heard. EXTREMITIES: Normal range of motion. No clubbing or cyanosis. Peripheral pulses intact. No lower extremity edema ASSESSMENT: Chest pain, status post cardiac catheterization with stenting of the mid and proximal LAD 70% distal stenosis of circumflex Hypertension Hyperlipidemia PLAN: Continue dual antiplatelet therapy with aspirin and Brilinta for 6 months Continue high intensity statin. LDL goal less than 70 Continue additional cardiac medications Patient will require staged PCI of the circumflex in the near future Patient may be discharged home today from a cardiac standpoint and follow-up on an outpatient basis Nurse practitioner note has been reviewed by physician. Signing provider agrees with the documented findings, assessment, and plan of care documented by FINANCIAL ACCOUNTING MANAGER as a scribe. Objective - Vital Signs Vital signs: Vital Signs Temp 98.5 F 02/14/24 07:00 Pulse 86 02/14/24 07:00 Resp 15 02/14/24 07:00 BP 139/87 02/14/24 07:00 Pulse Ox 98 02/14/24 08:44 FiO2 Intake & Output 02/13/24 02/14/24 02/14/24 18:59 06:59 18:59 Intake Total 1547.33 118 Output Total 650 Balance 897.33 118 Weight 104.326 kg Intake: IV 900 Intake, IV Titration 57.33 Amount Heparin Sod,Pork in 0.45% 57.33 NaCl 25,000 unit In 0.45 % NaCl 1 250ml.bag @ 9. 585 UNITS/KG/HR 10 mls/hr IV .Q24H [facility] Rx#: [id number] Oral 590 118 Output: Urine 650 Other: # Voids 3 - Labs CBC & Chem 7: 02/14/24 06:50 02/14/24 06:50 Labs: Abnormal Lab Results - Last 24 Hours (Table) 02/14/24 02/14/24 Range/Units 06:50 06:50 MPV 8.8 L (9.5-12.2) FL Immature Gran # 0.05 H (0.00-0.04) X 10*3/uL Anion Gap 12.20 H (4.00-12.00) mmol/L BUN/Creatinine Ratio 10.82 L (12.00-20.00) Ratio
--- NOTE | 2024-02-19 05:01 | P.DS ---
Providers Date of admission: 02/11/24 16:06 Expected date of discharge: 02/14/24 Attending physician: Issac Martel Consults: 02/11/24 17:01 Consult Physician Urgent Consulting Provider: Dao Jiang Consult Reason/Comments: chest pain r/o ACS Do you want consulting provider notified?: Yes 02/13/24 12:32 Consult Physician Routine Consulting Provider: Dao Jiang Consult Reason/Comments: Post Interventional Patient Do you want consulting provider notified?: Already Contacted Primary care physician: Stated None Hospital Course: Final diagnosis -Chest pain due to severe two vessel coronary artery disease patient underwent stenting of the LAD and the left circ . He is on dual antiplatelet therapy. Patient will need outpatient follow-up for PCI stenting per cardiology -Elevated consistently elevated blood pressure patient probably has essential hypertension -Acute gastroesophageal reflux disease -History of alcohol use, denies any currently -Marijuana use, counseling was provided GI prophylaxis DVT prophylaxis Full Code Discharge disposition Patient is being discharged in a stable condition with guarded prognosis to home. Patient will follow-up with primary care provider to establish in the outpatient setting upon discharge. Patient is to continue with current medications and close outpatient follow-up with cardiology as scheduled. Total time taken is greater than 35 minutes. Hospital course This is a 58-year-old male who was recently admitted with chest pain found to have severe two-vessel coronary artery disease. Cardiology following patient is status post catheterization underwent stenting of the LAD and the left circumflex. Patient monitored overnight with no acute issues noted and has been instructed to follow-up with cardiology in the outpatient setting and will need staged PCI stenting per cardiology. Patient to continue on current medication and establish with a primary care provider in the outpatient setting. Patient has been cleared by cardiology. Please refer to cardiology notes for further HPI. Patient reports to feeling well at home. Currently no reports of chest pain, shortness of breath, or palpitations. Patient is afebrile. No reports of nausea or vomiting and patient is tolerating diet. Patient will be discharged home today. Physical exam: Gen: This is a 58-year-old male who is awake, alert and oriented x 3, well- developed, well-nourished, obese HEENT: Head is atraumatic, normocephalic. Pupils equal, round. Sclerae is anicteric. NECK: Supple. No JVD. No lymphadenopathy. No thyromegaly. LUNGS: Clear to auscultation. No wheezes or rhonchi. No intercostal retractions. HEART: S1, S2 are muffled ABDOMEN: Soft. Obese. Bowel sounds are present. No masses. No tenderness. EXTREMITIES: No pedal edema. No calf tenderness. NEUROLOGICAL: Patient is awake, alert and oriented x3. Cranial nerves 2 through 12 are grossly intact. Please refer to medication reconciliation sheet for a list of medications. The impression and plan of care has been dictated by Ana Farnsworth, Nurse Practitioner as directed. Dr. Delonte MD I have performed a history and examination and MDM of this patient, discussed the same with the dictator, and agree with the dictator's assessment and plan as written ,documented as a scribe. Based on total visit time, I have performed more than 50% of the visit. Patient Condition at Discharge: Stable Plan - Discharge Summary New Discharge Prescriptions: New Pantoprazole Sodium [Protonix] 40 mg PO AC-BRKFST #14 tab Ticagrelor [Brilinta] 90 mg PO BID #60 tab amLODIPine [Norvasc] 5 mg PO DAILY #30 tab Discharge Medication List Pantoprazole Sodium [Protonix] 40 mg PO AC-BRKFST #14 tab 02/12/24 [Rx] amLODIPine [Norvasc] 5 mg PO DAILY #30 tab 02/12/24 [Rx] Ticagrelor [Brilinta] 90 mg PO BID #60 tab 02/14/24 [Rx] Follow up Appointment(s)/Referral(s): Yonatan Lyn MD [STAFF PHYSICIAN] - 1 Week (Office will call with date/time) Shalonda De Santiago MD [STAFF PHYSICIAN] - 1 Week Patient Instructions/Handouts: Heart Catheterization (DC), After Radial Heart Catheterization (GEN) Activity/Diet/Wound Care/Special Instructions: Activity limited until follow-up Follow-up with primary care provider to establish on discharge Continue taking medications as prescribed Follow-up with cardiology outpatient Continue heart healthy diet Discharge Disposition: HOME SELF-CARE
== END 2024-02-14 13:50 | disposition home or self-care (01) | DRG 321 ==
LOC: EC 13:39 → OBSVTOIN 16:06 → 6NMEDSUR 16:06
PROVIDERS: ADMIT Internal Medicine; ATTEND Internal Medicine
PROC: B240ZZ3 Ultrasonography of Single Coronary Artery, Intravascular (ICD-10-PCS; principal; 2024-02-13 10:05)
PROC: 027035Z Dilation of Coronary Artery, One Artery with Two Drug-eluting Intraluminal Devices, Percutaneous Approach (ICD-10-PCS; principal; 2024-02-13 10:05)
PROC: 4A023N7 Measurement of Cardiac Sampling and Pressure, Left Heart, Percutaneous Approach (ICD-10-PCS; 2024-02-13 10:05)
PROC: B2111ZZ Fluoroscopy of Multiple Coronary Arteries using Low Osmolar Contrast (ICD-10-PCS; 2024-02-13 10:05)
DX: I25.110 Atherosclerotic heart disease of native coronary artery with unstable angina pectoris (principal); I25.42 Coronary artery dissection; I10 Essential (primary) hypertension; Z28.310 Unvaccinated for COVID-19; E78.5 Hyperlipidemia, unspecified; K21.9 Gastro-esophageal reflux disease without esophagitis; Z79.899 Other long term (current) drug therapy; Z87.891 Personal history of nicotine dependence; Z71.41 Alcohol abuse counseling and surveillance of alcoholic; Z71.51 Drug abuse counseling and surveillance of drug abuser
CPT/HCPCS: 36415; 71046; 78452; 80048; 80053; 80061; 83735; 83880; 84484; 85025; 85379; 85610; 85730; 92978; 93005; 93017; 93306; 93458; 94760; 96365; 96366; 96375; 96376; 99285

== ENCOUNTER 2024-02-21 05:46 | Day surgery (SDC) | payer OTHER ==
[2024-02-21] MEDS ORDERED: HEPARIN SODIUM,PORCINE (1 ML) 2,500 UNIT in SODIUM CHLORIDE 0.9% 250 ML IRRIGATION PRN (05:58)
[2024-02-21] MEDS ORDERED: NITROGLYCERIN SL TABS 0.4 MG TAB SUBLINGUAL PRN ×2 (05:58→08:17)
[2024-02-21] MEDS ORDERED: HEPARIN SODIUM,PORCINE 10,000 UNIT in SODIUM CHLORIDE 0.9% 1,000 ML IRRIGATION PRN (05:58)
[2024-02-21] MEDS ORDERED: ALPRAZolam 0.5 MG TAB PO PRN (05:58)
[2024-02-21] MEDS ORDERED: ALPRAZolam 0.25 MG TAB PO PRN (05:58)
[2024-02-21] MEDS: IV FLUID CONTINUATION 1,000 ML IV ONE (06:30)
[2024-02-21] MEDS: SODIUM CHLORIDE 0.9% 1,000 ML in EMPTY BAG 1 BAG IV SCH ×2 (06:33→12:15)
[2024-02-21] MEDS: ASPIRIN 325 MG TAB PO STA (06:41)
[2024-02-21] MEDS ORDERED: HEPARIN SODIUM 1,000 UN/ML (10ML VL) ONE (07:25)
[2024-02-21] MEDS: MIDAZOLAM 2 MG/2 ML VIAL IVP ONE (07:28)
[2024-02-21] MEDS: LIDOCAINE 1% INJ 10MG/ML (20 ML MDV) SQ ONE (07:28)
[2024-02-21] MEDS: HEPARIN SODIUM 1,000 UN/ML (10ML VL) IVP ONE (07:30)
[2024-02-21] MEDS: VERAPAMIL SYRINGE (5 MG/10 ML) INTRAARTER ONE (07:30)
[2024-02-21] MEDS: NITROGLYCERIN 1000MCG/10ML SYRINGE INTRACORON ONE (07:56)
[2024-02-21] MEDS ORDERED: MORPHINE SULFATE 4 MG/ML SYRINGE ONE (08:05)
[2024-02-21] MEDS: MORPHINE SULFATE 4 MG/ML SYRINGE IVP ONE (08:06)
[2024-02-21] MEDS: IOPAMIDOL-370 100ML BTL INJ ONE ×2 (08:12→08:13)
[2024-02-21] MEDS ORDERED: MAG HYDROX/AL HYDROX/SIMETH 30 ML CUP PO PRN (08:17)
[2024-02-21] MEDS ORDERED: ATROPINE SULFATE 0.1 MG/ML 10ML SYRINGE IV PRN (08:17)
[2024-02-21] MEDS ORDERED: RX INFO: IV CONTRAST WAS GIVEN 1 EACH MISC MISCELLANE PRN (08:17)
[2024-02-21] MEDS ORDERED: ZOLPIDEM 5 MG TAB PO PRN (08:17)
--- NOTE | 2024-02-21 08:25 | P.PCN ---
Date of Procedure: 02/21/24 Operative Findings: PERCUTANEOUS CORONARY INTERVENTION Performing physician Yonatan Lyn M.D. Procedure Performed: 1. Successful stenting of the distal and mid LCx using 3.5 x 18 and 3.0 x 18 Xience drug-eluting stent with an excellent angiographic results. 2. Adjunctive use of intravascular imaging 3. Left coronary angiogram 4. Ultrasound-guided access of the right radial artery Indication: The patient is a pleasant 58-year-old gentleman who underwent a heart catheterization recently by Dr. Mahoney for further evaluation of chest discomfort. He was found to have severe two-vessel CAD involving the LAD and LCx. He underwent PCI of the LAD and was brought today to undergo PCI of the LCx Approach: Right radial artery Complications: None Level of Sedation: Moderate with a sedation length of 43 minutes Procedure Discussion: After obtaining informed consent the patient was brought to the cardiac Forging Dies Final Finisher. The right radial artery was cannulated using micropuncture technique under ultrasound guidance the micropuncture wire passed easily then I placed a 6 Czech 11 cm sheath at the right radial artery. I gave the patient 2 mg of verapamil intra-arterial and 6000's of heparin intravenous. Subsequently I did engage the left main using an XB 3 5 LAD guide. Attempting accessing or engaging the left main using XB 3 0 was unsuccessful and for that reason I used XB 3 5. Attempting advancing a run-through wire to the LCx was unsuccessful because the wire to keep favoring the LAD. I left the wire in the LAD and subsequently I was able to wire the LCx using a whisper wire. Intravascular ultrasound was performed and showed a diameter around 3 mm with a soft plaque. Predilatation was performed using 2.5 mm score flex balloon before I deployed 3.0 x 18 mm stent which was postdilated using 3.5 mm noncompliant balloon with the following angiogram showing dissection involving the distal edge of the stent appeared to be concerning and hazy. I decided to cover that with a stent so I deployed 3.5 x 18 mm stent distal to the first stent in the mid LCx. The overlap between the 2 stents was about 2 mm. Subsequently I deployed the second stent under 12 feliciano for 20 seconds with postdilatation of the area of overlap using the stent balloon. Final angiogram showed excellent angiographic results. Please note that during the procedure we injected an air bubble and that was resolved after increasing the oxygen through nasal cannula and give the patient nitroglycerin. Also I did selective left coronary angiogram which showed patent stent in the left anterior descending artery. The procedure was completed with no complication Postprocedure Management: 1. Dual antiplatelet therapy using aspirin and Brilinta for at least 6-month 2. Aggressive cholesterol control 3. Risk factors modification
[2024-02-21] MEDS: ACETAMINOPHEN TAB 325 MG TAB PO PRN (09:16)
[2024-02-21] MEDS: HYDROmorphone 0.5 MG/0.5 ML SYRINGE IVP PRN (10:18)
[2024-02-21 15:30] VITALS: RESP 16
[2024-02-21] MEDS: TICAGRELOR 90 MG TAB PO SCH (20:21)
[2024-02-21] MEDS: ATORVASTATIN 80 MG TAB PO SCH (20:21)
[2024-02-22] MEDS: PANTOPRAZOLE 40 MG TABLET PO SCH (05:54)
[2024-02-22 07:37] VITALS: BP 155/74; PULSE 85; TEMP 98.4
[2024-02-22 07:55] LABS: African American GFR (CKD) >90 (>60 ml/min/1.73 sqM); Non-African American GFR(CKD) >90 (>60 ml/min/1.73 sqM)
== END 2024-02-22 10:36 | disposition home or self-care (01) ==
LOC: CATHCVL 05:46 → 6NMEDSUR 08:11 → CATHCVL 02-22 10:36
PROVIDERS: ATTEND Internal Medicine Interventional Cardiology
DX: I25.10 Atherosclerotic heart disease of native coronary artery without angina pectoris (principal)
CPT/HCPCS: 82565; C9600; C1769 ×4; C1894; C1887; C1753; C1874 ×2; C1725 ×2; J2250; J2270; J2001; J1644; J1170; Q9967; J2305; 76937; 92978

== ENCOUNTER 2024-06-02 13:44 | Emergency (ER) | payer OTHER ==
[2024-06-02 13:51] VITALS: RESP 18; TEMP 98.3
--- NOTE | 2024-06-02 14:25 | ED ---
Abdominal Pain HPI - General Chief Complaint: Nausea/Vomiting/Diarrhea Stated Complaint: can't walk/dizzy Time Seen by Provider: 06/02/24 14:04 Source: patient, RN notes reviewed Mode of arrival: ambulatory Limitations: no limitations - History of Present Illness Initial Comments: This is a 58-year-old male who presents to the emergency department for ab dominal pain, nausea, vomiting, and dizziness. States that when he woke up he started to feel very nauseous and dizzy. He then started to develop severe pain in the left lower quadrant region. Reports a history of diverticulitis requiring substantial surgeries and is concerned that this may be flaring up on him. Also notes that he has recently been trying to eat healthier and making a lot of dietary changes, and wonders if that may be contributing to his symptoms as well. Denies any diarrhea or constipation. He does feel very weak. He did have several cardiac stents placed a couple of months ago. He has been doing well since this and denies any chest pain or shortness of breath at this time. MD Complaint: abdominal pain - Related Data Previous Rx's Medication Instructions Recorded Pantoprazole Sodium [Protonix] 40 mg PO AC-BRKFST #14 tab 02/12/24 amLODIPine [Norvasc] 5 mg PO DAILY #30 tab 02/12/24 Ticagrelor [Brilinta] 90 mg PO BID #60 tab 02/14/24 Aspirin [Adult Low Dose Aspirin EC] 81 mg PO DAILY #90 tab 02/22/24 Atorvastatin Calcium [Lipitor] 80 mg PO RT-DAILY #90 tab 02/22/24 HYDROcodone/APAP 7.5-325MG [[place] 1 tab PO Q6HR PRN 3 Days #12 tab 06/02/24 7.5-325] Ondansetron Odt [Zofran Odt] 4 mg PO Q8HR PRN #20 tab 06/02/24 Allergies Allergy/AdvReac Type Severity Reaction Status Date / Time No Known Allergies Allergy Verified 02/21/24 06:14 Review of Systems ROS Statement: Those systems with pertinent positive or pertinent negative responses have been documented in the HPI. ROS Other: All systems not noted in ROS Statement are negative. Past Medical History Past Medical History: Coronary Artery Disease (CAD), Chest Pain / Angina, GERD/Reflux, Hypertension Additional Past Medical History / Comment(s): recent adm. to [facility] w/chest pain- received stents History of Any Multi-Drug Resistant Organisms: None Reported Past Surgical History: Heart Catheterization With Stent Additional Past Surgical History / Comment(s): gastric surgery Past Anesthesia/Blood Transfusion Reactions: No Reported Reaction Date of Last Stent Placement:: 02/13/24 Past Psychological History: No Psychological Hx Reported Smoking Status: Former smoker General Exam Limitations: no limitations General appearance: alert, in no apparent distress Head exam: Present: atraumatic, normocephalic, normal inspection Respiratory exam: Present: normal lung sounds bilaterally. Absent: respiratory distress, wheezes, rales, rhonchi, stridor Cardiovascular Exam: Present: regular rate, normal rhythm, normal heart sounds. Absent: systolic murmur, diastolic murmur, rubs, gallop, clicks GI/Abdominal exam: Present: soft, tenderness (LLQ), normal bowel sounds. Absent: distended Neurological exam: Present: alert, oriented X3, CN II-XII intact Psychiatric exam: Present: normal affect, normal mood Skin exam: Present: warm, dry, intact, normal color. Absent: rash Course Vital Signs 06/02/24 06/02/24 13:48 17:59 Temperature 98.3 F Pulse Rate 99 95 Respiratory 18 18 Rate Blood Pressure 111/72 119/85 O2 Sat by Pulse 97 Oximetry Medical Decision Making - Medical Decision Making This is a 58 year old male who presents to the emergency department for abdominal pain, nausea, and dizziness. Was pt. sent in by a medical professional or institution? @ -No Did you speak to anyone other than the patient for history? @ -No Did you review nursing and triage notes? @ -Yes, and I agree, it is accurate with regards to the patient's symptoms. Were old charts reviewed? @ -No Differential Diagnosis? @ -Differential Abdominal Pain Men: Appendicitis, cholecystitis, diverticulosis, ischemic bowel, pancreatitis, hepatitis, UTI, gastroenteritis, AAA, incarcerated hernia, bowel obstruction, constipation, inflammatory bowel, hepatitis, peptic ulcer disease, splenic infarction, perforated viscus, testicular torsion, this is not meant to be an all-inclusive list EKG interpreted by me (3pts min.)? @ -EKG interpreted by me demonstrating the following: Sinus rhythm. Ventricular rate 88 bpm, OH interval 200 ms, QRS duration 116 ms, QTc 380 ms. X-rays interpreted by me (1pt min.)? @ -Not obtained CT interpreted by me (1pt min.)? @ -CT scan of the abdomen and pelvis obtained. My interpretation identifies no evidence of bowel wall thickening or free air. U/S interpreted by me (1pt. min.)? @ -Not obtained What testing was considered but not performed? (CT, X-rays, U/S, labs)? Why? @ -None What meds were considered but not given? Why? @ -None Did you discuss the management of the patient with other professionals? @ -No Did you reconcile home meds? @ -No Was smoking cessation discussed for >3mins.? @ -No Was critical care preformed (if so, how long)? @ -No Were there social determinants of health that impacted care today? How? (Homelessness, low income, unemployed, alcoholism, drug addiction, transportation, low edu. Level, literacy, decrease access to med. care, usp, rehab)? @ -No Was there de-escalation of care discussed even if they declined? (Discuss DNR or withdrawal of care, Hospice)? @ -No What co-morbidities impacted this encounter? (DM, HTN, Smoking, COPD, CAD, Cancer, CVA, Hep., AIDS, mental health diagnosis, sleep apnea, morbid obesity)? @ -CAD, GERD, diverticulosis Was patient admitted / discharged? @ -Discharged. Lab work unremarkable. Urinalysis negative for signs of infection. CT scan of the abdomen and pelvis obtained revealing no acute process. Symptoms well-controlled in the emergency department and he was tolerating oral intake. States that he overall felt significantly improved and was comfortable with discharge home. Symptoms may be viral in nature or related to his recent dietary changes. Advised to follow-up with his PCP for reevaluation. Patient unable to take NSAIDs. I was willing to give him prescription for a few days worth of [place] in the event his pain returns. Zofran prescribed as well for further management of the nausea. Patient dischar ged home in stable condition. Case discussed with ED attending, Dr. Gloria. Case discussed with ED attending Dr. Villareal. Return precautions reviewed in depth, the patient is instructed to return to the emergency department with any new, worsening, or concerning symptoms. Patient verbalized understanding. Undiagnosed new problem with uncertain prognosis? @ -None Drug Therapy requiring intensive monitoring for toxicity (Heparin, Nitro, Insulin, Cardizem)? @ -None Were any procedures done? @ -None Diagnosis/symptom? @ -Abdominal pain, nausea, dizziness Acute, or Chronic, or Acute on Chronic? @ -Acute Uncomplicated (without systemic symptoms) or Complicated (systemic symptoms)? @ -Uncomplicated Side effects of treatment? @ -None Exacerbation, Progression, or Severe Exacerbation] @ -Not applicable Poses a threat to life or bodily function? @ -No - Lab Data Result diagrams: 06/02/24 14:38 06/02/24 14:38 Lab Results 06/02/24 06/02/24 06/02/24 Range/Units 14:38 14:38 14:38 WBC 8.0 (3.8-10.6) k/uL RBC 4.51 (4.30-5.90) m/uL Hgb 14.1 (13.0-17.5) gm/dL Hct 43.4 (39.0-53.0) % MCV 96.3 (80.0-100.0) fL MCH 31.3 (25.0-35.0) pg MCHC 32.5 (31.0-37.0) g/dL RDW 12.7 (11.5-15.5) % Plt Count 232 (150-450) k/uL MPV 7.2 Neutrophils % 91 % Lymphocytes % 4 % Monocytes % 4 % Eosinophils % 1 % Basophils % 0 % Neutrophils # 7.2 (1.3-7.7) k/uL Lymphocytes # 0.3 L (1.0-4.8) k/uL Monocytes # 0.3 (0-1.0) k/uL Eosinophils # 0.1 (0-0.7) k/uL Basophils # 0.0 (0-0.2) k/uL Sodium 136 L (137-145) mmol/L Potassium 4.1 (3.5-5.1) mmol/L Chloride 105 (98-107) mmol/L Carbon Dioxide 23 (22-30) mmol/L Anion Gap 8 mmol/L BUN 11 (9-20) mg/dL Creatinine 0.94 (0.66-1.25) mg/dL Est GFR (CKD-EPI)AfAm >90 (>60 ml/min/1.73 sqM) Est GFR (CKD-EPI)NonAf 89 (>60 ml/min/1.73 sqM) Glucose 141 H (74-99) mg/dL Plasma Lactic Acid García (0.7-2.0) mmol/L Calcium 9.5 (8.4-10.2) mg/dL Total Bilirubin 0.9 (0.2-1.3) mg/dL AST 33 (17-59) U/L ALT 23 (4-49) U/L Alkaline Phosphatase 103 (38-126) U/L Total Protein 6.6 (6.3-8.2) g/dL Albumin 4.0 (3.5-5.0) g/dL Amylase 84 (30-110) U/L Lipase 169 (23-300) U/L Urine Color Colorless Urine Appearance Clear (Clear) Urine pH 6.5 (5.0-8.0) Ur Specific [place] 1.041 H (1.001-1.035) Urine Protein Negative (Negative) Urine Glucose (UA) Negative (Negative) Urine Ketones Negative (Negative) Urine Blood Negative (Negative) Urine Nitrite Negative (Negative) Urine Bilirubin Negative (Negative) Urine Urobilinogen <2.0 (<2.0) mg/dL Ur Leukocyte Esterase Negative (Negative) 06/02/24 Range/Units 14:38 WBC (3.8-10.6) k/uL RBC (4.30-5.90) m/uL Hgb (13.0-17.5) gm/dL Hct (39.0-53.0) % MCV (80.0-100.0) fL MCH (25.0-35.0) pg MCHC (31.0-37.0) g/dL RDW (11.5-15.5) % Plt Count (150-450) k/uL MPV Neutrophils % % Lymphocytes % % Monocytes % % Eosinophils % % Basophils % % Neutrophils # (1.3-7.7) k/uL Lymphocytes # (1.0-4.8) k/uL Monocytes # (0-1.0) k/uL Eosinophils # (0-0.7) k/uL Basophils # (0-0.2) k/uL Sodium (137-145) mmol/L Potassium (3.5-5.1) mmol/L Chloride (98-107) mmol/L Carbon Dioxide (22-30) mmol/L Anion Gap mmol/L BUN (9-20) mg/dL Creatinine (0.66-1.25) mg/dL Est GFR (CKD-EPI)AfAm (>60 ml/min/1.73 sqM) Est GFR (CKD-EPI)NonAf (>60 ml/min/1.73 sqM) Glucose (74-99) mg/dL Plasma Lactic Acid García 1.3 (0.7-2.0) mmol/L Calcium (8.4-10.2) mg/dL Total Bilirubin (0.2-1.3) mg/dL AST (17-59) U/L ALT (4-49) U/L Alkaline Phosphatase (38-126) U/L Total Protein (6.3-8.2) g/dL Albumin (3.5-5.0) g/dL Amylase (30-110) U/L Lipase (23-300) U/L Urine Color Urine Appearance (Clear) Urine pH (5.0-8.0) Ur Specific [place] (1.001-1.035) Urine Protein (Negative) Urine Glucose (UA) (Negative) Urine Ketones (Negative) Urine Blood (Negative) Urine Nitrite (Negative) Urine Bilirubin (Negative) Urine Urobilinogen (<2.0) mg/dL Ur Leukocyte Esterase (Negative) - Radiology Data Radiology results: report reviewed, image reviewed Disposition Clinical Impression: Abdominal pain, Nausea Disposition: HOME SELF-CARE Instructions (If sedation given, give patient instructions): Abdominal Pain (ED) Additional Instructions: Return to the emergency department with any new, worsening, or concerning symptoms. Take the Zofran up to every 8 hours as needed for nausea and vomiting. Take the [place] sparingly when your pain is the most severe. Follow-up with your primary care provider in 1 to 2 days. Prescriptions: HYDROcodone/APAP 7.5-325MG [[place] 7.5-325] 1 tab PO Q6HR PRN 3 Days #12 tab PRN Reason: Pain Ondansetron Odt [Zofran Odt] 4 mg PO Q8HR PRN #20 tab PRN Reason: Nausea And Vomiting Is patient prescribed a controlled substance at d/c from ED?: Yes When asked, does pt state using other controlled substances?: No If prescribed controlled substance>3 days was MAPS reviewed?: Prescribed <3 Days Referrals: Nonstaff,Physician [Primary Care Provider] - 1-2 days Time of Disposition: 17:57
[2024-06-02] MEDS: ONDANSETRON 4 MG/2 ML VIAL IVP STA (14:33)
[2024-06-02] MEDS: HYDROmorphone 1 MG/ML 1 ML SYRINGE IVP STA ×2 (14:34→15:57)
[2024-06-02] MEDS: SODIUM CHLORIDE 0.9% 1,000 ML IV STA (14:34)
[2024-06-02 14:59] LABS: Basophils % (A) 0 %; Eosinophils # (A) 0.1 k/uL (0-0.7); Eosinophils % (A) 1 %; HCT 43.4 % (39.0-53.0); HGB 14.1 gm/dL (13.0-17.5); Lymphocytes # (A) 0.3 k/uL (1.0-4.8); Lymphocytes % (A) 4 %; MCH 31.3 pg (25.0-35.0); MCHC 32.5 g/dL (31.0-37.0); MCV 96.3 fL (80.0-100.0); Mean Platelet Volume 7.2; Monocytes # (A) 0.3 k/uL (0-1.0); Monocytes % (A) 4 %; Neutrophils # (A) 7.2 k/uL (1.3-7.7); Neutrophils % (A) 91 %; Platelet Count 232 k/uL (150-450); RBC 4.51 m/uL (4.30-5.90); RDW 12.7 % (11.5-15.5)
[2024-06-02 15:10] LABS: ALT 23 U/L (4-49); AST 33 U/L (17-59); African American GFR (CKD) >90 (>60 ml/min/1.73 sqM); Alkaline Phosphatase 103 U/L (38-126); Amylase 84 U/L (30-110); Anion Gap 8 mmol/L; Blood Urea Nitrogen 11 mg/dL (9-20); Calcium 9.5 mg/dL (8.4-10.2); Carbon Dioxide 23 mmol/L (22-30); Chloride 105 mmol/L (98-107); Glucose 141 mg/dL (74-99); Lipase 169 U/L (23-300); Non-African American GFR(CKD) 89 (>60 ml/min/1.73 sqM); Potassium 4.1 mmol/L (3.5-5.1); Sodium 136 mmol/L (137-145); Total Bilirubin 0.9 mg/dL (0.2-1.3); Total Protein 6.6 g/dL (6.3-8.2)
--- NOTE | 2024-06-02 16:03 | CT ---
EXAMINATION TYPE: CT abdomen pelvis w con CT DLP: 1313.9 mGycm, Automated exposure control for dose reduction was used. DATE OF EXAM: 06/02/2024 3:51 PM COMPARISON: None. CLINICAL INDICATION:Male, 58 years old with history of LLQ pain; LLQ pain TECHNIQUE: Axial CT of the abdomen and pelvis. Sagittal and coronal reformats were created on a [employer] workstation. Contrast used:100ml mL of Isovue 300 with IV Contrast, (none if empty) Oral contrast used: without Oral Contrast (none if empty) FINDINGS: LOWER CHEST: Unremarkable ABDOMEN LIVER: Unremarkable GALLBLADDER AND BILE DUCTS: Unremarkable. PANCREAS: Unremarkable. SPLEEN: Unremarkable. ADRENAL GLANDS: Unremarkable. KIDNEYS AND URETERS: No evidence of hydronephrosis or renal calculus. The ureters are unremarkable. PELVIS BLADDER: Unremarkable REPRODUCTIVE: Unremarkable. ABDOMEN & PELVIS STOMACH AND BOWEL: Stomach and duodenum are unremarkable. Scattered colonic diverticula are identifie d without surrounding inflammatory change. The appendix is unremarkable No evidence of bowel obstruct ion. PERITONEUM/RETROPERITONEUM: No evidence of pneumoperitoneum or free fluid. VASCULATURE: Mild atherosclerotic calcifications are present throughout the abdominal aorta and its b ranches. No evidence of aortic aneurysm. MUSCULOSKELETAL: No acute osseous abnormalities. Mild disc degeneration changes are present throughou t the thoracolumbar spine. LYMPH NODES: No gross evidence for lymphadenopathy. SOFT TISSUE/ABDOMINAL WALL: Unremarkable IMPRESSION: 1. No acute intra-abdominal process. 2. Colonic diverticulosis with chronic adjacent scarring. [facility], , 06/02/2024 4:01 PM
[2024-06-02] MEDS: KETOROLAC 15 MG/ML 1 ML VIAL IVP STA (16:19)
[2024-06-02 17:30] LABS: Appearance,Urine Clear (Clear); Bilirubin,Urine Negative (Negative); Blood,Urine Negative (Negative); Color,Urine Colorless; Glucose,Urine (UA) Negative (Negative); Ketones,Urine Negative (Negative); Leukocyte Esterase,Urine Negative (Negative); Nitrite,Urine Negative (Negative); PH, Urine 6.5 (5.0-8.0); Protein,Urine Negative (Negative); Urobilinogen,Urine <2.0 mg/dL (<2.0)
[2024-06-02 17:41] LABS: Specific Gravity,Urine 1.041 (1.001-1.035)
[2024-06-02 18:00] VITALS: BP 119/85; PULSE 95
[2024-06-02] MEDS: ACET/COD 300 MG/30 MG STARTER PACK 6 TAB BTL PO STA (18:06)
[2024-06-02] MEDS: ONDANSETRON 4 MG ODT STARTER PACK 2 TAB BTL PO STA (18:07)
== END 2024-06-02 18:10 | disposition home or self-care (01) ==
LOC: EC 13:44
CPT/HCPCS: 36415; 74177; 80053; 81003; 82150; 83605; 83690; 85025; 93005; 96374; 96375; 96376; 99284